=== PATIENT | male | born 1970 | race Caucasian/White ===

== ENCOUNTER 2019-06-30 16:59 | Inpatient (IN) | payer OTHER ==
[~2019-06-30] VITALS: Ht 153.9 cm; Wt 86.2 kg
[2019-06-30 17:00] VITALS: BP_SYST 106
--- NOTE | 2019-06-30 17:00 | NUR ---
BROUGHT IN BY MEDICAL TRANSPORT AND DROPPED OFF, NO MEDICAL INFORMATION GIVEN. ADJUNCT COMMUNICATIONS FACULTY MEMBER STATES HE IS FROM [address], HERE TO SEE DR BLOUNT. PT POOR HISTORIAN DUE TO HIS INTAKE OF VODKA, PT STATES HE IS REALLY INTOXICATED. CALLED NUMBER GIVEN BY ADJUNCT COMMUNICATIONS FACULTY MEMBER [phone] WHICH IS DISCONNECTED. ALSO GIVEN NUMBER FOR STORE ASSISTANT OF [address] RESIDENCY [phone] AND MESSAGE LEFT. CALL PLACED TO PRISCILA AT [facility] TO SEE IF THIS PT IS EXPECTED AT [facility]
--- NOTE | 2019-06-30 17:20 | NUR ---
Patient to ER bed 5 to gown for evaluation. Side rails up.
--- NOTE | 2019-06-30 17:29 | NUR ---
Pt was dropped off to the ER by a medical transportation van from a nursing facility. Number provided by transporter is an unvalid number. Pt medical and surgical hx is unobtainable at the moment. Allergies are not known at this time. Pt only states that Dr. Julian asked him to come to the hospital and that he has been drinking Vodka. Pt refuses to provide any other info.
--- NOTE | 2019-06-30 17:34 | NUR ---
ER at bedside examining patient.
--- NOTE | 2019-06-30 17:45 | NUR ---
Urine collected via staraight cath and sent to lab
[2019-06-30 18:01] LABS: BASOPHILS % (AUTO) 1.1 % (0.0-2.0); EOSINOPHILS % (AUTO) 0.8 % (0.0-4.0); HEMATOCRIT 39.5 % (36-54); HEMOGLOBIN 13.3 g/dL (14.0-18.0); LYMPHOCYTES # (AUTO) 1.7 K/uL (1.0-5.5); LYMPHOCYTES % (AUTO) 47.7 % (20.5-51.5); MEAN CORPUSCULAR HEMOGLOBIN 35 pg (27-31); MEAN CORPUSCULAR HGB CONC 34 % (32-36); MEAN CORPUSCULAR VOLUME 103 fL (79.0-98.0); MONOCYTES # (AUTO) 0.2 K/uL (0.0-1.0); MONOCYTES % (AUTO) 4.9 % (1.7-9.3); NEUTROPHILS # (AUTO) 1.7 K/uL (1.8-7.7); NEUTROPHILS % (AUTO) 45.5 % (40.0-70.0); PLATELET COUNT (AUTO) 132 K/uL (130-430); RED BLOOD CELL COUNT(AUTO) 3.85 MIL/uL (4.2-6.2); RED CELL DISTRIBUTION WIDTH 14.8 % (9.0-15.0); WHITE BLOOD COUNT (AUTO) 3.6 K/uL (4.8-10.8)
--- NOTE | 2019-06-30 18:20 | NUR ---
pt is currently sleeping in bed. Medical hx still unable to obtain
[2019-06-30 18:23] LABS: CREATININE 0.69 mg/dL (0.55-1.30)
[2019-06-30 18:27] LABS: BILIRUBIN,URINE NEGATIVE (NEGATIVE); BLOOD, URINE 1+ (NEGATIVE); CLARITY/URINE CLEAR (CLEAR); COLOR,URINE YELLOW (YELLOW); GLUCOSE,URINE NEGATIVE (NEGATIVE); KETONES,URINE NEGATIVE (NEGATIVE); LEUKOCYTE ESTERASE ,URINE NEGATIVE (NEGATIVE); NITRITE, URINE NEGATIVE (NEGATIVE); PH,URINE 7.5 (5.0-8.0); PROTEIN URINE NEGATIVE (NEGATIVE); UROBILINOGEN,URINE 0.2 (0.2-1.0)
[2019-06-30 18:27] LABS: ALBUMIN 3.2 g/dL (3.4-4.8); TOTAL BILIRUBIN 0.4 mg/dL (0.0-1.0)
[2019-06-30 18:45] LABS: POTASSIUM 2.4 mmol/L (3.5-5.1)
[2019-06-30 18:51] LABS: BARBITURATE, URINE POSITIVE (NEG <=200); BENZODIAZEPINE, URINE NEGATIVE (NEG <=150); CANNABINOID, URINE POSITIVE (NEG <=50); COCAINE, URINE NEGATIVE (NEG <=150); METHAMPHETAMINES SCREEN,URINE NEGATIVE (NEG <=500); OPIATE, URINE NEGATIVE (NEG <=100); PHENCYCLIDINE SCREEN,URINE NEGATIVE (NEG <=25); URINE AMPHETAMINE NEGATIVE (NEG <=500); URINE METHADONE NEGATIVE (NEG <=200); URINE OXYCODONE SCREEN NEGATIVE (NEG <=100)
[2019-06-30 18:52] LABS: UR TRICYCLIC ANTIDEPRESSANTS NEGATIVE (NEG <=300); URINE PROPOXYPHENE SCREEN NEGATIVE (NEG <=300)
[2019-06-30 18:53] LABS: BACTERIA,URINE FEW /HPF (None Seen); MUCUS,URINE None Seen /LPF (None Seen); RBC,URINE 0-3 /HPF (0-3)
[2019-06-30] MEDS ORDERED: FOLIC ACID 1 MG, THIAMINE HCL 100 MG, MAGNESIUM SULFATE 1 GM, MVI 10 ML in NACL 0.9% 1,... IV SCH (19:15)
[2019-06-30] MEDS ORDERED: KCL 20 mEq in 0.45% NS 1000 mL 1,000 ML IV ONE (19:15)
[2019-06-30] MEDS ORDERED: POTASSIUM CHLORIDE 40 MEQ in NS 250 ML IV ONE (19:15)
[2019-06-30] MEDS ORDERED: NACL 0.9% 1,000 ML IV ONE (19:15)
[2019-06-30] MEDS ORDERED: POTASSIUM CHLORIDE 20 MEQ TAB.PRT.SR PO ONE (19:15)
--- NOTE | 2019-06-30 19:20 | NUR ---
# 22 gauge angiocath placed to LFA. Use of asceptic technique. Opsite placed over site. Blood return noted. Blood for lab drawn from site. Flushed with 10 cc of normal saline. No evidence of infiltration noted. Patient tolerated well.
--- NOTE | 2019-06-30 19:27 | NUR ---
report given to Maximilian PIERRE. Pt is in stable condition.
[2019-06-30] MEDS ORDERED: ONDANSETRON HCL 4 MG/2 ML VIAL IVP ONE (19:45)
--- NOTE | 2019-06-30 20:00 | NUR ---
Pt is awake, intoxicated, mildly confused and rambling. Pt has studdering speech, lethargy. Vital signs stable
[2019-06-30] MEDS ORDERED: LORazepam 2 MG/ML VIAL IVP PRN (20:30)
--- NOTE | 2019-06-30 21:00 | NUR ---
Unable to Give Librium - Pyxis drawer/pocket stuck/inoperable
--- NOTE | 2019-06-30 21:00 | NUR ---
Pt Resting in ED bed comfortably. Pt ggiven juice at request, additional blanket for comfort
[2019-06-30] MEDS ORDERED: FAMOTIDINE 20 MG TABLET PO ONE (22:00)
[2019-06-30] MEDS ORDERED: chlordiazePOXIDE HCL 25 MG CAPSULE PO SCH (22:00)
--- NOTE | 2019-06-30 22:00 | NUR ---
Pt resting in ED bed comfortably. Pt awake, alert. Cooperative. Pt given additional blanket for comfort
[2019-06-30] MEDS ORDERED: THIAMINE HCL 100 MG/ML VIAL ONE (23:30)
[2019-06-30] MEDS ORDERED: MAGNESIUM SULFATE 1 GM/2 ML VIAL ONE (23:30)
[2019-06-30] MEDS ORDERED: FOLIC ACID 5 MG/ML VIAL IV ONE (23:32)
[2019-06-30] MEDS ORDERED: MVI 10 ML VIAL IV ONE (23:32)
[2019-06-30] MEDS: FOLIC ACID 1 MG, MVI 10 ML in NACL 0.9% 1,000 ML IV SCH (23:43)
[2019-06-30] MEDS: MAGNESIUM SULFATE 1 GM, THIAMINE HCL 100 MG in NS 100 ML IV SCH (23:44)
[2019-07-01] MEDS ORDERED: KCL 20 mEq in 100 mL (PREMIX) 200 ML IV ONE (00:03)
--- NOTE | 2019-07-01 00:05 | NUR ---
Transfer to Tele via ACLS protocol. Licensed nurse present. IV present no signs or symptoms of infiltration.
--- NOTE | 2019-07-01 00:05 | NUR ---
Patient will be admitted to [facility]. Admitted to tele unit. Will go to room 121. Belongings list completed. Summary report printed. Report will be given at bedside.
--- NOTE | 2019-07-01 00:05 | NUR ---
Unable to Obtain EKG/Cardiac Strip before transfer. Monitor not transmitting. EKG will be performed on Tele Floor as ordered by
--- NOTE | 2019-07-01 00:10 | NUR ---
Bedside report given to IGNACIO Rodarte. Pt assisted into clean gown and bed. All care and medications endorsed to IGNACIO Rodarte. Advised of New EKG order requested by Dr. Eason to be performed bedside.
--- NOTE | 2019-07-01 00:29 | NUR ---
ADMISSION NOTE Received patient from ER via gurney. Patient admitted with diagnosis of Alcohol Intoxication, Hypokalemia. Patient oriented to hospital routine, call light, toileting and safety-patient verbalized understanding.
[2019-07-01 00:40] VITALS: BP_SYST 133
[2019-07-01] MEDS: TEMAZEPAM 15 MG CAPSULE PO PRN ×2 (01:14→20:46)
--- NOTE | 2019-07-01 01:25 | NUR ---
LIBRIUM 50 MG PO ADMINISTER ORDERED , patient unsteady GAIT FALL MEASURES IMPLEMENTED / .
--- NOTE | 2019-07-01 01:26 | NUR ---
RESTORIL 30 MG PO administer per PATIENT REQUEST FOR SLEEP AIDE .
--- NOTE | 2019-07-01 01:27 | NUR ---
SEIZURE PRECAUTIONS implemented side Rails padded for safety .
[2019-07-01] MEDS ORDERED: FLU VACC QS2019-20 36MOS UP/PF 60 MCG/0.5 ML SYRINGE I.M. PRN (02:45)
--- NOTE | 2019-07-01 03:01 | NUR ---
Consultation Paged Reason for Consultation: alcoholism Was consult called: Y Person who was notified: Priyanka Consulting Physician: Dr. Julian Quality Assurance Tester Ordering Physician: Dr. Eason
--- NOTE | 2019-07-01 03:50 | NUR ---
NPO , patient Remains NPO status @ alert and aware for AM procedure .
--- NOTE | 2019-07-01 03:54 | NUR ---
FLU VACCINE administer Right DELT patient tolerate continue to monitor .
[2019-07-01 06:57] LABS: PROTHROMBIN TIME 10.3 SECS (9.5-12.5)
[2019-07-01 06:58] LABS: BASOPHILS % (AUTO) 1.3 % (0.0-2.0); EOSINOPHILS # (AUTO) 0.1 K/uL (0.0-0.4); EOSINOPHILS % (AUTO) 2.1 % (0.0-4.0); HEMOGLOBIN 11.8 g/dL (14.0-18.0); LYMPHOCYTES # (AUTO) 0.9 K/uL (1.0-5.5); LYMPHOCYTES % (AUTO) 31.9 % (20.5-51.5); MEAN CORPUSCULAR HEMOGLOBIN 35 pg (27-31); MEAN CORPUSCULAR HGB CONC 34 % (32-36); MEAN CORPUSCULAR VOLUME 104 fL (79.0-98.0); MONOCYTES # (AUTO) 0.1 K/uL (0.0-1.0); MONOCYTES % (AUTO) 3.9 % (1.7-9.3); NEUTROPHILS # (AUTO) 1.7 K/uL (1.8-7.7); NEUTROPHILS % (AUTO) 60.8 % (40.0-70.0); PLATELET COUNT (AUTO) 100 K/uL (130-430); RED BLOOD CELL COUNT(AUTO) 3.37 MIL/uL (4.2-6.2); RED CELL DISTRIBUTION WIDTH 14.5 % (9.0-15.0); WHITE BLOOD COUNT (AUTO) 2.7 K/uL (4.8-10.8)
[2019-07-01 07:14] LABS: ALBUMIN 2.7 g/dL (3.4-4.8); CREATININE 0.52 mg/dL (0.55-1.30); POTASSIUM 3.6 mmol/L (3.5-5.1); TOTAL BILIRUBIN 0.4 mg/dL (0.0-1.0)
[2019-07-01 07:21] LABS: CALCIUM 6.8 mg/dL (8.4-11.0)
--- NOTE | 2019-07-01 07:45 | NUR ---
OPENING NOTE RECEIVED PATIENT AWAKE IN BED WATCHING TV. ALERT AND ORIENTED. DENIES PAIN. ROOM AIR. NO ACUTE DISTRESS. NO SOB. RESPIRATION EVEN AND UNLABORED. SKIN WARM AND DRY TO TOUCH. IV INTACT AND PATENT. DISCUSSED PLAN OF CARE AND PT VERBALIZED UNDERSTANDING. CONT NPO AT THIS TIME FOR ABDOMINAL US; PT AWARE. BED IN LOW AND LOCKED POSITION. SIDERAIL UPX3. BED ALARM ON . CALL LIGHT IN REACH .CONT TO MONITOR
[2019-07-01 08:00] VITALS: BP_SYST 151
--- NOTE | 2019-07-01 08:05 | NUR ---
ABDOMINAL ULTRASOUND DONE AT BEDSIDE
--- NOTE | 2019-07-01 08:40 | NUR ---
2D ECHO DONE AT BEDSIDE
--- NOTE | 2019-07-01 09:08 | NUR ---
/CALCIUM SPOKE TO AND REPORTED CALCIUM 6.8 RECEIVED N.O. FOR VITAMIN D3 5,000UNIT PO X1 AND CALCIUM 2,000MG PO X1; ORDER CLARIFIED AND VERIFIED WITH MD AND CARRIED OUT. CONT TO MONITOR
[2019-07-01] MEDS ORDERED: CHOLECALCIFEROL (VITAMIN D3) 2,000 UNIT TABLET PO ONE (09:15)
[2019-07-01] MEDS ORDERED: CALCIUM 500 MG/TAB PO ONE (09:15)
[2019-07-01] MEDS: POTASSIUM CHLORIDE 20 MEQ/PKT PACKET PO SCH (09:46)
[2019-07-01] MEDS: risperiDONE 1 MG TABLET (RisperDAL) PO SCH ×2 (09:47→20:42)
[2019-07-01] MEDS: FAMOTIDINE 20 MG TABLET PO SCH ×2 (09:47→20:42)
--- NOTE | 2019-07-01 10:33 | NUR ---
Nutrition Update Aram Scale 18 noted. Pt admitted for alcohol intoxication, hypokalemia. Diet: regular BMI: 36.4 kg/m2 RD to follow per nutrition care standards.
[2019-07-01 11:31] VITALS: BP_SYST 138
[2019-07-01] MEDS ORDERED: MULTIVITS,CA,MINERALS/IRON/FA 1 TABLET PO ONE (13:15)
[2019-07-01] MEDS ORDERED: MAGNESIUM SULFATE 50 ML IV ONE (13:15)
--- NOTE | 2019-07-01 13:38 | NUR ---
REPORTED TO PATIENT VOMITTED X1, SMALL AMT RECEIVED ORDER FOR ZOFRAN 4MG IVPB Q6HR; ORDER CLARIFIED AND VERIFIED. CONT TO MONITOR
[2019-07-01] MEDS ORDERED: ONDANSETRON HCL 4 MG/2 ML VIAL IVP PRN (13:45)
[2019-07-01] MEDS: chlordiazePOXIDE HCL 10 MG CAPSULE PO SCH ×2 (14:14→20:42)
--- NOTE | 2019-07-01 14:40 | NUR ---
NOTE SEEN BY CLAYTON LORD AT BEDSIDE
--- NOTE | 2019-07-01 15:41 | NUR ---
Photographic Aide: met with pt. for a social work interview as well as a Discharge Planning Assessment. PARK ATTENDANT met with pt. bedside. He was calm and pleasant and took his time answering all questions. Pt. stated he self medicates with alcohol because he cannot sleep. He also uses pot to help him with his sleep issues. He agreed to speak to the DrPriscilla today about other interventions for his sleep. Pt. was not sure what to attribute this to. Pt stated he takes medication for Schizophrenia and depression. He stated the last time he was suicidal was 5 years ago. He stated, "I went though a suicidal phase and was successful by drinking the biggest bottle of alcohol I could find. Each time , they had a harder time reviving me" . Pt. stated he is doing a lot better now. When PARK ATTENDANT asked him about AA, pt. stated he has been to AA before, but did not like it and wont try it again. PARK ATTENDANT shared some resources with him and pt. accepted them. Pt. stated he self medicates with marijuana as well as it helps him sleep. He realizes this is not a ocean transportation intermediary solution and states he has to stop drinking and smoking. Pt. stated he sees a pscy. Dr. Burton Thomas about every 4 months for medication management and just to check in. Pt. realizes without his medication, he will have a psychotic episode. Pt. stated his medication will be delivered to his board and care. Since he is not there, someone from the [facility] will receive meds for him. Pt is hoping to be discharged soon. PARK ATTENDANT will remain available as needed.
[2019-07-01 16:32] VITALS: BP_SYST 134
--- NOTE | 2019-07-01 17:00 | NUR ---
NOTES ASSISTED PATIENT TO BATHROOM, MARIO WELL. DENIES ANY PAIN. ALL NEEDS MET. CONT TO MONITOR
[2019-07-01] MEDS: CALCIUM CARBONATE 500 MG/ TAB.CHEW PO SCH ×2 (17:35→20:42)
--- NOTE | 2019-07-01 18:47 | NUR ---
CLOSING NOTE PATIENT AWAKE IN BED. NO ACUTE DISTRESS. NO SOB. RESPIRATION EVEN AND UNLABORED. SKIN WARM AND DRY TO TOUCH. IV INTACT AND PATENT. BED IN LOW AND LOCKED POSITION. PADDED SIDERAIL UPX3. BED ALARM ON. CALL LIGHT IN REACH. ROOM NEAR NURSES STATION. WILL ENDORSE TO ONCOMING SHIFT.
--- NOTE | 2019-07-01 19:15 | NUR ---
Opening Notes Received bedside report with patient resting in bed comfortably. AAox3 and able to verbalize his needs. Seizure precautions in place. IV on the left forearm and right ac s/l. Flushed and intact. No pain or respiratory distress. oriented the patient to the room and use of the call light. Call light placed within reach and will monitor on rounds.
[2019-07-01 20:00] VITALS: BP_SYST 147
[2019-07-01] MEDS: FOLIC ACID 1 MG, MVI 10 ML in NACL 0.9% 1,000 ML IV SCH (20:41)
[2019-07-01] MEDS: MAGNESIUM SULFATE 1 GM, THIAMINE HCL 100 MG in NS 100 ML IV SCH (20:41)
[2019-07-01] MEDS: MIRTAZAPINE 15 MG TABLET PO SCH (20:42)
--- NOTE | 2019-07-01 23:10 | NUR ---
Patient ambulated to the bathroom with assistance. Patient had a bowel movement. No pain or respiratory problems. will cont to monitor on rounds.
[2019-07-02 01:47] VITALS: BP_SYST 164
--- NOTE | 2019-07-02 02:00 | NUR ---
Patient asleep in bed. IV fluids infusing with no adverse effect. Medications tolerated well. will cont to monitor on rounds.
--- NOTE | 2019-07-02 04:30 | NUR ---
No change in patient condition.
[2019-07-02 06:12] LABS: BASOPHILS % (AUTO) 0.7 % (0.0-2.0); EOSINOPHILS # (AUTO) 0.1 K/uL (0.0-0.4); EOSINOPHILS % (AUTO) 2.9 % (0.0-4.0); HEMATOCRIT 36.9 % (36-54); HEMOGLOBIN 12.5 g/dL (14.0-18.0); LYMPHOCYTES # (AUTO) 0.9 K/uL (1.0-5.5); LYMPHOCYTES % (AUTO) 26.8 % (20.5-51.5); MEAN CORPUSCULAR HEMOGLOBIN 35 pg (27-31); MEAN CORPUSCULAR HGB CONC 34 % (32-36); MEAN CORPUSCULAR VOLUME 103 fL (79.0-98.0); MONOCYTES # (AUTO) 0.1 K/uL (0.0-1.0); MONOCYTES % (AUTO) 4.1 % (1.7-9.3); NEUTROPHILS # (AUTO) 2.2 K/uL (1.8-7.7); NEUTROPHILS % (AUTO) 65.5 % (40.0-70.0); RED BLOOD CELL COUNT(AUTO) 3.58 MIL/uL (4.2-6.2); RED CELL DISTRIBUTION WIDTH 14.2 % (9.0-15.0); WHITE BLOOD COUNT (AUTO) 3.3 K/uL (4.8-10.8)
--- NOTE | 2019-07-02 06:25 | NUR ---
Closing Notes Patient in bed resting. IV is saline lock at this time. All needs have been met. no complaints of pain or sob. All needs have been met and will endorse care to oncoming shift.
[2019-07-02 06:27] LABS: CALCIUM 8.6 mg/dL (8.4-11.0); CREATININE 0.51 mg/dL (0.55-1.30); POTASSIUM 3.3 mmol/L (3.5-5.1); TOTAL BILIRUBIN 0.5 mg/dL (0.0-1.0)
--- NOTE | 2019-07-02 07:30 | NUR ---
Opening note Patient resting in bed at this time, no complaints of pain. No SOB. Iv patent, intact, no infiltration noted. On safety and aspiration precautions, HOB kept elevated, 3 side rails up, call light within reach. patient in stable condition. Will continue to monitor.
[2019-07-02 08:00] VITALS: BP_SYST 159
[2019-07-02] MEDS: MULTIVITS,CA,MINERALS/IRON/FA 1 TABLET PO SCH (08:25)
[2019-07-02] MEDS: CHOLECALCIFEROL (VITAMIN D3) 2,000 UNIT TABLET PO SCH (08:25)
[2019-07-02] MEDS: POTASSIUM CHLORIDE 20 MEQ/PKT PACKET PO SCH (08:26)
[2019-07-02] MEDS: FAMOTIDINE 20 MG TABLET PO SCH ×2 (08:26→20:54)
[2019-07-02] MEDS: chlordiazePOXIDE HCL 10 MG CAPSULE PO SCH ×3 (08:26→20:52)
[2019-07-02] MEDS: CALCIUM CARBONATE 500 MG/ TAB.CHEW PO SCH ×4 (08:26→20:55)
[2019-07-02] MEDS: risperiDONE 1 MG TABLET (RisperDAL) PO SCH ×2 (08:27→20:55)
--- NOTE | 2019-07-02 09:00 | NUR ---
Medications All morning medications given as ordered. No adverse side effects. No nausea, no vomiting noted.
[2019-07-02 10:24] LABS: PLATELET COUNT (AUTO) 80 K/uL (130-430)
--- NOTE | 2019-07-02 10:47 | NUR ---
PAGED PAGED MARYJANE MARC AT [phone] SPOKE WITH SONIA.
[2019-07-02] MEDS ORDERED: POTASSIUM CHLORIDE 20 MEQ TAB.PRT.SR PO ONE (11:00)
--- NOTE | 2019-07-02 11:31 | NUR ---
Rounds Patient working with physical therapist at this time. patient standing with walker. No complaints of pain. No other needs at this time.
[2019-07-02] MEDS ORDERED: cloNIDine HCL 0.1 MG TABLET PO PRN (12:15)
[2019-07-02 12:45] VITALS: BP_SYST 143
--- NOTE | 2019-07-02 13:00 | NUR ---
Lunch patient sitting up in bed at this time, eating lunch, tolerating well. no nausea, no vomiting noted. no complaints of abdominal pain.
--- NOTE | 2019-07-02 14:00 | NUR ---
psych facility Asked patient whether he would go to a psych facility for his mental health disorders, patient refusing to go. Patient stated " I want to go back to the [facility], I have my things there, I need my stuff". Told patient his things can be brought to him. Patient stated " No I will not go." Dr. Eason aware. Dr. leonel scales.
--- NOTE | 2019-07-02 14:16 | NUR ---
PSYCH DOCTOR PAGED PAGED ,SAID AT [phone] SPOKE WITH JEAN PIERRE.
--- NOTE | 2019-07-02 14:45 | NUR ---
Dr. Eleil Julian made aware of patients refusal to go to Psych facility. stated he will come see patient today or tomorrow morning to possibly place patient on 1934
--- NOTE | 2019-07-02 15:36 | NUR ---
DC PLANNING: CM SPOKE WITH PATIENT'S NURSE (ITZ) REGARDING DC PLANNING TO PSYCH FACILITY. PATIENT REFUSED TO GO VOLUNTARILY TO PSYSCH FACILITY. PER ITZ, DR. OVERTON WAS MADE AWARE AND WILL BE EVALUATING PATIENT AGAIN EITHER TONIGHT OR TOMORROW MORNING.
[2019-07-02 16:11] VITALS: BP_SYST 133
--- NOTE | 2019-07-02 16:47 | NUR ---
Rounds patient resting in bed at this time, no complaints of pain. Iv patent, intact. No infiltration noted. Assisted patient to the restroom and back to bed with assistance. no complaints of dizziness.
--- NOTE | 2019-07-02 18:08 | NUR ---
Closing note Patient resting in bed at this time, no complaints of pain. No SOB. Iv patent, intact, no infiltration noted. On safety and aspiration precautions, HOB kept elevated, 3 side rails up, call light within reach. patient in stable condition. All need met.
[2019-07-02 20:00] VITALS: BP_SYST 154
[2019-07-02] MEDS: MAGNESIUM SULFATE 1 GM, THIAMINE HCL 100 MG in NS 100 ML IV SCH (20:51)
[2019-07-02] MEDS: FOLIC ACID 1 MG, MVI 10 ML in NACL 0.9% 1,000 ML IV SCH (20:51)
[2019-07-02] MEDS: MIRTAZAPINE 15 MG TABLET PO SCH (20:54)
[2019-07-03 06:49] LABS: ALBUMIN 2.9 g/dL (3.4-4.8); CALCIUM 8.4 mg/dL (8.4-11.0); CREATININE 0.51 mg/dL (0.55-1.30); EOSINOPHILS # (AUTO) 0.2 K/uL (0.0-0.4); EOSINOPHILS % (AUTO) 3.4 % (0.0-4.0); HEMOGLOBIN 12.4 g/dL (14.0-18.0); LYMPHOCYTES # (AUTO) 1.8 K/uL (1.0-5.5); MEAN CORPUSCULAR HEMOGLOBIN 35 pg (27-31); MEAN CORPUSCULAR HGB CONC 33 % (32-36); MEAN CORPUSCULAR VOLUME 106 fL (79.0-98.0); MONOCYTES # (AUTO) 0.3 K/uL (0.0-1.0); MONOCYTES % (AUTO) 5.8 % (1.7-9.3); NEUTROPHILS # (AUTO) 2.7 K/uL (1.8-7.7); NEUTROPHILS % (AUTO) 53.8 % (40.0-70.0); POTASSIUM 3.8 mmol/L (3.5-5.1); RED BLOOD CELL COUNT(AUTO) 3.59 MIL/uL (4.2-6.2); RED CELL DISTRIBUTION WIDTH 14.6 % (9.0-15.0); TOTAL BILIRUBIN 0.3 mg/dL (0.0-1.0)
[2019-07-03 08:00] VITALS: BP_SYST 140
--- NOTE | 2019-07-03 08:00 | NUR ---
ASSUMPTION OF CARE: RECEIVED PT AWAKE, ORIENTED TO NAME PLACE AND EVENT, VSS, DX: RISK FOR INJURY, R/T ALCOHOL INTOXICATION, PT IS COOPERATIVE, BREATH SOUNDS ARE CLEAR, BREATHING UNLABORED, IV SITE INTACT, PATENT, NO REDNESS OR SWELLING, NO C/O PAIN OR DISCOMFORT. ORIENTED TO UNIT, CALL LIGHT PLACED WITHIN REACH, WILL CONT' TO MONITOR AND ASSESS.
--- NOTE | 2019-07-03 09:00 | NUR ---
UNIVERSITY INTERN: MORNING MEDS GIVEN, PER ORDERED BY Marcos, TOLERATED WELL, WILL CONT' TO MONITOR AND ASSESS.
[2019-07-03] MEDS: chlordiazePOXIDE HCL 10 MG CAPSULE PO SCH (09:37)
[2019-07-03] MEDS: MULTIVITS,CA,MINERALS/IRON/FA 1 TABLET PO SCH (09:38)
[2019-07-03] MEDS: FAMOTIDINE 20 MG TABLET PO SCH (09:38)
[2019-07-03] MEDS: POTASSIUM CHLORIDE 20 MEQ/PKT PACKET PO SCH (09:38)
[2019-07-03] MEDS: risperiDONE 1 MG TABLET (RisperDAL) PO SCH (09:38)
[2019-07-03 09:39] LABS: PLATELET COUNT (AUTO) 76 K/uL (130-430)
[2019-07-03] MEDS: CALCIUM CARBONATE 500 MG/ TAB.CHEW PO SCH (09:39)
[2019-07-03] MEDS: CHOLECALCIFEROL (VITAMIN D3) 2,000 UNIT TABLET PO SCH (09:39)
--- NOTE | 2019-07-03 11:27 | NUR ---
Bulk Folder Note/Psych placement Received order to discharge patient to a psychiatric facility. Patient was put on a [address] Julian told Steffany the technical support professional to fax patient's information to [phone], where they had a bed for placement. [facility] phoned Sunday at [facility], p [phone]. They are completely full. They may be able to accept patient tomorrow. Patient is too young for [facility] and they are full at this time. Spoke with patient and worked at length to determine where patient came from. Patient stated [facility] is the name of the board and care lens matcher. The number is in his phone but I could not find a salvage mend worker that would charge his phone. The address on the face sheet did not lead anywhere. The address patient provided, [address] [place] [address] in [place] [address], does not exist. That address with zip code is in [place]. The ED intake showed the name of the board and care to be [facility], which could not be found on [employer]. The marriage and family social worker at [place] was not familiar with the name of that board and care. Have left a voicemail with a case therapist at [facility]. Patient provided the phone number of his , Samia [phone], to the other . Left a voicemail. Patient stated he has a sister, Yesy Norman [phone], and that she could be called. Left a voicemail. She called back. Patient has a history of neuro problems, brain atrophy, psychiatric problems, and alcoholism. She does not know where he was staying but will try to find out. Patient indicated he was in treatment with psychiatrist, Dr Burton Thomas. Looked him up. In [place] [phone]. Office closed today. Patient stated he wants to return to his board and correction. Faxed patient's information to Nidia at [facility] for placement in the [facility] Area p [phone] f [phone]. Addendum: 07/03/19 at 1242 by Татьяна Morales LCSW Spoke with Nidia at the [facility]. She has called all psychiatric LPS facilities in the [facility] area. None have beds available today. She will sent patient's information to [facility] that has a bed available today. Addendum: 07/03/19 at 1419 by Татьяна Morales LCSW [facility] Psych unit room 219 bed 2 report to [phone] Yesy Cameron, tishied Addendum: 07/03/19 at 1419 by Татьяна Piibe TECHNICAL SUPPORT PROFESSIONAL [facility] 2:30 Addendum: 07/03/19 at 1432 by Татьяна Morales LCSW Ysey called with [facility]'s phone number, lens matcher of [facility], . No answer, no voicemail. Addendum: 07/03/19 at 1458 by Татьяна Morales LCSW Yuki with [facility] in [place] called, . They can accept patient upon discharge from [place].
[2019-07-03 12:00] VITALS: BP_SYST 138
[2019-07-03 14:23] VITALS: BP_SYST 138
--- NOTE | 2019-07-03 14:45 | NUR ---
ENDORSEMENT: CALL AND GAVE REPORT TO NURSE ADDISON AT [facility], PT WILL BE ADMITTED TO ROOM 2192, FAMILY MEMBERS CONTACTED BY SHEAR HELPER MAXX, SPOKE WITH SISTER ADRIENNE DE LA PAZ, PT AWARE ALSO OF TRANSFER AND IS IN AGREEMENT, WILL CONT' WITH POC.
--- NOTE | 2019-07-03 15:00 | NUR ---
DISCHARGE: PT DISCHARGED TO [facility], ALL BELONGINGS ACCOUNTED FOR AND RETURNED TO PT, INSTRUCTIONS WITH PACKET ALSO PROVIDED, IV SITE D/C'ED TOLERATED WELL, PRESSURE DRSG APPLIED, TRANSPORTED VIA BLS AMBULANCE.
--- NOTE | 2019-07-04 15:08 | NUR ---
PHYSICAL THERAPY CO-SIGN The Physical Therapy Progress Notes documented by Civil Engineer Helper have been reviewed. Reviewed/Co-Signed by: Juan Malone PT Documentation Done by: LORENZO HAMILTON PTA Addendum: 07/04/19 at 1509 by Juan Malone PT Amended: Links added.
== END 2019-07-03 15:30 | DRG 896 ==
LOC: SED 16:59 → STU 19:09 → SMU 07-01 13:45
PROVIDERS: ADMIT Internal Medicine; ATTEND Internal Medicine
DX: F10.129 Alcohol abuse with intoxication, unspecified (principal); G92 Toxic encephalopathy; E44.0 Moderate protein-calorie malnutrition; D61.818 Other pancytopenia; E87.6 Hypokalemia; F20.9 Schizophrenia, unspecified; E83.51 Hypocalcemia; Z68.36 Body mass index [BMI] 36.0-36.9, adult; Z79.899 Other long term (current) drug therapy; Z91.013 Allergy to seafood; Z91.19 Patient's noncompliance with other medical treatment and regimen
CPT/HCPCS: 36415; 71045; 76700-TC; 80053; 80061; 80307; 81000-TC; 82105; 83036; 83735-TC; 84100-TC; 85025; 85610-TC; 87081; 93005; 93306; 96365; 97116-GP; 97530-GP; 99285; G0378; G0482; J2405; J3411; J3475; J3480; J3490; J7030; J7050

== ENCOUNTER 2023-04-08 18:50 | Emergency (ER) | payer OTHER ==
[~2023-04-08] VITALS: Ht 167.6 cm; Wt 72.6 kg
[2023-04-08 19:04] VITALS: BP_SYST 126; PULSE 86; RESP 16; TEMP 98.7; O2SAT 98
[2023-04-08 20:25] LABS: HEMATOCRIT 33.6 % (36-54); HEMOGLOBIN 10.4 g/dL (14.0-18.0); MEAN CORPUSCULAR HEMOGLOBIN 27 pg (27-31); MEAN CORPUSCULAR HGB CONC 31 % (32-36); MEAN CORPUSCULAR VOLUME 86 fL (79.0-98.0); PLATELET COUNT (AUTO) 90 K/uL (130-430); RED BLOOD CELL COUNT(AUTO) 3.93 MIL/uL (4.2-6.2); RED CELL DISTRIBUTION WIDTH 20.9 % (9.0-15.0); WHITE BLOOD COUNT (AUTO) 3.5 K/uL (4.8-10.8)
[2023-04-08 20:50] LABS: ALANINE AMINOTRANSFERASE 20 U/L (12-78); ALBUMIN 3.4 g/dL (3.4-4.8); ANION GAP 12 (5-15); ASPARTATE AMINOTRANSFERASE 55 U/L (10-37); CALCIUM 7.7 mg/dL (8.4-11.0); CARBON DIOXIDE 23 mmol/L (23-29); CHLORIDE 102 mmol/L (98-107); CREATININE 0.64 mg/dL (0.55-1.30); GFR AFRICAN AMERICAN 168 mL/min (>90); GFR NON AFRICAN-AMERICAN 139 mL/min (>90); GLUCOSE 87 mg/dL (74-106); POTASSIUM 4.1 mmol/L (3.5-5.1); SODIUM SERUM 137 mmol/L (136-145); TOTAL BILIRUBIN 0.3 mg/dL (0.0-1.0); TOTAL PROTEIN, SERUM 7.1 g/dL (6.4-8.3); UREA NITROGEN, BLOOD 5 mg/dL (8-21)
[2023-04-08 20:57] LABS: ACETAMINOPHEN < 1 ug/mL (1-30); SALICYLATE 4 mg/dL (3-30)
[2023-04-08 21:03] LABS: ALCOHOL, BLOOD 429 mg/dL (<10)
[2023-04-08 21:41] LABS: ANISOCYTOSIS 2+; BAND % (MANUAL) 0 % (0-6); BASOPHILS % (MANUAL) 0 % (0-2); EOSINOPHILS % (MANUAL) 0 % (0-7); LYMPHOCYTES % (MANUAL) 60 % (20-46); MONOCYTES % (MANUAL) 8 % (0-11); PLATELET ESTIMATE DECREASED (ADEQUATE)
[2023-04-08 21:42] LABS: HYPOCHROMASIA 1+; OVALOCYTES FEW; TEAR DROP CELLS FEW
[2023-04-09] MEDS ORDERED: NACL 0.9% 1,000 ML IV ONE
[2023-04-09 06:12] VITALS: BP_SYST 107; PULSE 69; RESP 17; TEMP 97.7; O2SAT 95
== END 2023-04-09 05:25 | disposition home or self-care (01) ==
LOC: SED 18:50
DX: F10.129 Alcohol abuse with intoxication, unspecified (principal); M54.50 Low back pain, unspecified; Z91.013 Allergy to seafood; Z79.899 Other long term (current) drug therapy; Y90.6 Blood alcohol level of 120-199 mg/100 ml
CPT/HCPCS: 99285; 70450; 71045; 85027; 80053; 85007; 84484; 36415; 93005; 76376; 96360; G0482; J7030; G0480; G0481

== ENCOUNTER 2024-03-25 20:01 | Emergency (ER) | payer OTHER, MEDICAID ==
[~2024-03-25] VITALS: Ht 175.3 cm; Wt 81.6 kg
[2024-03-25 20:32] VITALS: BP_SYST 138; PULSE 85; RESP 16; TEMP 97; O2SAT 97
[2024-03-26] MEDS: ACETAMINOPHEN 500 MG TABLET PO ONE (03:18)
[2024-03-26 06:38] VITALS: BP_SYST 132; PULSE 81; RESP 15; TEMP 97.8; O2SAT 94
== END 2024-03-26 06:38 | disposition home or self-care (01) ==
LOC: SED 20:01
DX: F10.129 Alcohol abuse with intoxication, unspecified (principal); M54.50 Low back pain, unspecified; Z91.013 Allergy to seafood; Y90.9 Presence of alcohol in blood, level not specified
CPT/HCPCS: 99283